=== PATIENT | female | born 1950 | race Caucasian/White ===

== ENCOUNTER 2021-09-14 08:45 | Emergency (ER) | payer MEDICARE ==
[~2021-09-14] VITALS: Ht 160 cm; Wt 80.5 kg
[~2021-09-14 08:45] MED LIST: ACET325T21 PO; ALBU2.5V8 INH; ALPR0.5T6 PO; ATOR20TA58 PO; DEXA6TAB6 PO; GUAI100L12 PO; HYDR-2759 PO; HYDR12.58 PO; IPRA4AER INH; LOSA-73 PO; MELO15TA23 PO; PANT40TA77 PO; PRED-220 PO
--- NOTE | 2021-09-14 08:59 | PHYS DOC ---
Past Medical History Past Medical History: Anxiety, Arthritis, Hypertension, Other Additional Past Medical Histor: BRAIN ANEURYSM Past Surgical History: Appendectomy, Other Additional Past Surgical Histo: brain aneurysm clipping x2, ovarian cyst Smoking Status: Current Every Day Smoker Alcohol Use: Occasionally Drug Use: None General Adult EDM: Chief Complaint: SHORTNESS OF BREATH HPI: HPI: Patient is a 71 year old female who presents with report of dyspnea for the past several days. She also reports cough with clear sputum, which is unchanged from her baseline cough. She denies chest pain. She denies hemoptysis. She denies fevers or chills. She continues to smoke tobacco. She was admitted here in May of this year with Covid pneumonia. She had been fully vaccinated against Covid at that time. She recovered relatively uneventfully thereafter. She reports that her cough and shortness of breath symptoms just began last night. She denies lower extremity pain or swelling. Denies syncope, dizziness, diaphoresis. Denies weight loss. Denies known sick contacts, denies other recent hospitalization, denies travel history. Review of Systems: Review of Systems: Constitutional: Denies fever or chills. [] Eyes: Denies change in visual acuity. [] HENT: Mild nasal congestion. Denies sore throat or voice changes. Respiratory: Dyspnea, wheezing, cough. Denies hemoptysis. Cardiovascular: Denies chest pain or edema. [] GI: Denies abdominal pain, nausea, vomiting : Denies urinary symptoms. Musculoskeletal: Denies back pain or joint pain. [] Integument: Denies rash. [] Neurologic: Denies headache, focal weakness or sensory changes. [] Psychiatric: Denies depression or anxiety. [] Heart Score: C/O Chest Pain: No Risk Factors: Risk Factors: DM, Current or recent (<one month) smoker, HTN, HLP, family history of CAD, obesity. Risk Scores: Score 0 - 3: 2.5% MACE over next 6 weeks - Discharge Home Score 4 - 6: 20.3% MACE over next 6 weeks - Admit for Clinical Observation Score 7 - 10: 72.7% MACE over next 6 weeks - Early Invasive Strategies Allergies: Allergies: Allergies Coded Allergies Type Severity Reaction Last Updated Verified Penicillins Allergy Intermediate 03/30/19 Yes Sulfa (Sulfonamide Antibiotics) Allergy Intermediate 03/30/19 Yes codeine Allergy Intermediate 03/30/19 Yes Physical Exam: PE: Constitutional: Well developed, well nourished, no acute distress, non-toxic appearance. [] HENT: Normocephalic, atraumatic Eyes: Sclera are clear and anecteric Neck: Normal range of motion, no tenderness, supple, no stridor. Trachea is midline. No JVD. Cardiovascular:Heart rate regular rhythm, +2 radial and +2 posterior tibial pulses bilaterally. Lungs & Thorax: Inspiratory and expiratory wheezing bilaterally. Bilateral coarse rhonchi. No stridor. Mild tachypnea. No retractions. Speaks in full and clear sentences. Abdomen: Abdomen is soft, non-distended, non-tender to palpation. Skin: Warm, dry, no erythema, no rash. [] Back: No tenderness, no CVA tenderness. [] Extremities: No tenderness, no cyanosis, no clubbing, ROM intact, no edema. No calf tenderness. Neurologic: Alert and oriented X 3, normal motor function, normal sensory function, no focal deficits noted. [] Psychologic: Affect normal, judgement normal, mood normal. [] EKG: EKG: EKG is interpreted at 0904 Rhythm is sinus Rate is 87 bpm [place] is left marked artifact No STEMI EKG is interpreted at 1013 Rhythm is sinus Rate is 78 bpm [place] is left No STEMI Radiology/Procedures: Radiology/Procedures: IMAGING REPORT Signed PATIENT: MARK OHARA ACCOUNT: [id number] : 1950 LOCATION: ER AGE: 71 SEX: F EXAM STATUS: REG ER ORD. PHYSICIAN: FRED BERMAN DO REASON: cough, dyspnea PROCEDURE: PORTABLE CHEST 1V EXAM: Chest, single view. HISTORY: Cough. Dyspnea. COMPARISON: 06/23/2021 FINDINGS: A frontal view of the chest is obtained. There is stable left parahilar opacity. There is bilateral lower lobe atelectasis or interstitial infiltrate. There is no consolidation, pleural effusion or pneumothorax. The heart is normal in size. There is IMPRESSION: 1. Stable left perihilar opacity. This may be due to consolidated infiltrate or underlying mass. Short-term radiographic or CT follow-up is recommended. 2. Increased bilateral lower lobe atelectasis or interstitial infiltrate. Electronically signed by: Keyanna Prakash MD (09/14/2021 9:43 AM) [id number] DICTATED and SIGNED BY: KEYANNA PRAKASH MD DATE: 09/14/21 [id number] IMAGING REPORT Signed PATIENT: MARK OHARA ACCOUNT: [id number] : 1950 LOCATION: ER AGE: 71 SEX: F EXAM STATUS: REG ER ORD. PHYSICIAN: FRED BERMAN DO REASON: dyspnea, hilar mass PROCEDURE: CT CHEST W/CONTRAST EXAM: Chest CT with intravenous contrast. HISTORY: Dyspnea. Hilar mass. TECHNIQUE: Computed tomographic images of the chest were obtained following the administration of intravenous contrast. Multiplanar reformatting was performed. *One or more of the following individualized dose reduction techniques were utilized for this examination: 1. Automated exposure control. 2. Adjustment of the mA and/or kV according to patient size. 3. Use of iterative reconstruction technique. COMPARISON: None. FINDINGS: The heart is normal in size. There is trace pericardial fluid. The aorta is normal in caliber. There is a bovine aortic arch branching pattern, a normal variant. There is aortic and aortic branch vessel atherosclerosis. There are enlarged mediastinal and hilar lymph nodes. For reference purposes, there is a 1.7 cm aortopulmonary window lymph node. There is a 1.3 cm right paratracheal lymph node. There is a 3.8 cm mass or masslike consolidation with surrounding groundglass opacity and bandlike extension to the overlying pleural within the anterior medial left upper lobe. There is no pneumothorax or pleural effusion. There is a tiny hiatal hernia. There is hepatic steatosis. There is mild left renal caliectasis. There are degenerative changes throughout the spine. There is no acute or suspicious osseous lesion. There is a moderate chronic L2 compression fracture with large superior endplate Schmorl's node. IMPRESSION: 1. 3.8 cm mass or masslike consolidation with surrounding groundglass opacity and atelectatic extension to the overlying pleura within the anterior left upper lobe. The CT appearance and persistence of this finding compared to radiographs dated 06/20/2021 favors pulmonary neoplasm rather than an infectious etiology. PET/CT may be useful for further characterization. 2. Enlarged mediastinal and hilar lymph nodes, the most conspicuous of which is an aortopulmonary window lymph node measuring 1.7 cm. This may be reactive or metastatic. Electronically signed by: Keyanna Prakash MD (09/14/2021 12:04 PM) [id number] DICTATED and SIGNED BY: KEYANNA PRAKASH MD DATE: 09/14/21 [id number] Course & Med Decision Making: Course & Med Decision Making Pertinent Labs and Imaging studies reviewed. (See chart for details) I have discussed the findings, differential diagnosis and plan of care with the patient. She is given IV Solu-Medrol as well as a DuoNeb treatment. She reports feeling much better. Wheezing is improved. No evidence of hypoxia or respiratory distress. I did explain the findings of mass on CT, concerning for possible malignancy. I was able to speak with Dr. Solis, he reports that he will see her in the office tomorrow, she should show up at 9:45 in the morning. I gave him her information, he will report this to his office staff. I discussed strict return precautions. There is no current indication for admission to the hospital based on her current clinical presentation. She verbalizes understanding of instructions provided, she will go see pulmonary services tomorrow. She is given outpatient resources to establish a primary care physician as well. [place] Disclaimer: [place] Disclaimer: This electronic medical record was generated, in whole or in part, using a voice recognition dictation system. Departure Departure Impression: Primary Impression: Dyspnea Qualified Codes: R06.00 - Dyspnea, unspecified Additional Impressions: COPD (chronic obstructive pulmonary disease) Qualified Codes: J44.9 - Chronic obstructive pulmonary disease, unspecified Pulmonary mass Hilar adenopathy Condition: STABLE Referrals: UNKNOWN PCP NAME (PCP) JUAREZ SOLIS MD Patient Instructions: Chronic Obstructive Pulmonary Disease, Lung Cancer Additional Instructions: Use your prescribed medications as directed. Return to the ER for chest pain, coughing up blood, temperature of 100.4 or higher, vomiting, dehydration, weakness or any other concerns. Please go to Dr. Solis's office at 9:45 in the morning to be seen to further evaluate your lung mass. He will also be able to help follow you for your COPD. Scripts Prednisone (PREDNISONE) 50 Mg Tablet 1 TAB PO DAILY for 4 Days, #4 TAB Prov: FRED BERMAN DO 09/14/21 FRED BERMAN DO Sep 14, 2021 08:59
[2021-09-14] MEDS ORDERED: methylPREDNISolone SOD SUCC PF 125 MG/2 ML VIAL. IV ONE (09:30)
[2021-09-14] MEDS ORDERED: IPRATRPIUM/ALBUTEROL 0.5/2.5MG 3 ML NEBU. NEB ONE (09:30)
[2021-09-14 09:32] LABS: BASO % 1 % (0-3); EOS % 0 % (0-3); HEMATOCRIT 40.9 % (36.0-47.0); HEMOGLOBIN 13.8 g/dL (12.0-15.5); LYMPH # 1.4 x10^3/uL (1.0-4.8); LYMPH % 22 % (24-48); MEAN CORPUSCULAR HEMOGLOBIN 32 pg (25-35); MEAN CORPUSCULAR HGB CONC 34 g/dL (31-37); MEAN CORPUSCULAR VOLUME 94 fL (79-100); MONO # 0.7 x10^3/uL (0.0-1.1); MONO % 11 % (0-9); NEUT # 4.2 x10^3/uL (1.8-7.7); NEUT % 67 % (31-73); PLATELET COUNT 218 x10^3/uL (140-400); RED BLOOD COUNT 4.34 x10^6/uL (3.50-5.40); RED CELL DISTRIBUTION WIDTH 13.8 % (11.5-14.5); WHITE BLOOD COUNT 6.3 x10^3/uL (4.0-11.0)
--- NOTE | 2021-09-14 09:45 | RAD ---
EXAM: Chest, single view. HISTORY: Cough. Dyspnea. COMPARISON: 06/23/2021 FINDINGS: A frontal view of the chest is obtained. There is stable left parahilar opacity. There is b ilateral lower lobe atelectasis or interstitial infiltrate. There is no consolidation, pleural effusi on or pneumothorax. The heart is normal in size. There is IMPRESSION: 1. Stable left perihilar opacity. This may be due to consolidated infiltrate or underlying mass. Shor t-term radiographic or CT follow-up is recommended. 2. Increased bilateral lower lobe atelectasis or interstitial infiltrate. Electronically signed by: Keyanna Goldberg MD (09/14/2021 9:43 AM) [id number]
[2021-09-14 09:48] LABS: CALCIUM 9.4 mg/dL (8.5-10.1); CREATININE 0.5 mg/dL (0.6-1.0); GFR 121.3; POTASSIUM 3.8 mmol/L (3.5-5.1)
[2021-09-14 09:54] LABS: ALBUMIN 3.8 g/dL (3.4-5.0); ALBUMIN/GLOBULIN RATIO 0.9 (1.0-1.7); TOTAL BILIRUBIN 0.3 mg/dL (0.2-1.0); TOTAL PROTEIN 7.9 g/dL (6.4-8.2)
--- NOTE | 2021-09-14 10:19 | EKG ---
[facility] [address] [place] [address] Test Date: 2021-09-14 Test Time: 10:11:50 Pat Name: MARK OHARA Department: Room: Gender: F Manager Cath Lab: : 1950 Requested By: FRED BERMNA Order Number: [id number] Reading MD: Measurements Intervals [place] Rate: 78 P: 47 ME: 170 QRS: -10 QRSD: 72 T: 34 QT: 384 QTc: 441 Interpretive Statements SINUS RHYTHM LEFTWARD AXIS QRS(T) CONTOUR ABNORMALITY CONSISTENT WITH INFERIOR INFARCT PROBABLY OLD ABNORMAL ECG RI6.01 Compared to ECG 09/14/2021 10:10:37 Atrial flutter no longer present Myocardial infarct finding still present
[2021-09-14] MEDS ORDERED: CONTRAST GIVEN. MC PRN (11:15)
[2021-09-14] MEDS ORDERED: IOHEXOL 300 MG/ML 100ML VIAL. IV ONE (11:15)
--- NOTE | 2021-09-14 12:07 | RAD ---
EXAM: Chest CT with intravenous contrast. HISTORY: Dyspnea. Hilar mass. TECHNIQUE: Computed tomographic images of the chest were obtained following the administration of int ravenous contrast. Multiplanar reformatting was performed. *One or more of the following individualized dose reduction techniques were utilized for this examina tion: 1. Automated exposure control. 2. Adjustment of the mA and/or kV according to patient size. 3. Use of iterative reconstruction technique. COMPARISON: None. FINDINGS: The heart is normal in size. There is trace pericardial fluid. The aorta is normal in calib er. There is a bovine aortic arch branching pattern, a normal variant. There is aortic and aortic bra nch vessel atherosclerosis. There are enlarged mediastinal and hilar lymph nodes. For reference purpo ses, there is a 1.7 cm aortopulmonary window lymph node. There is a 1.3 cm right paratracheal lymph n ode. There is a 3.8 cm mass or masslike consolidation with surrounding groundglass opacity and bandli ke extension to the overlying pleural within the anterior medial left upper lobe. There is no pneumot horax or pleural effusion. There is a tiny hiatal hernia. There is hepatic steatosis. There is mild l eft renal caliectasis. There are degenerative changes throughout the spine. There is no acute or susp icious osseous lesion. There is a moderate chronic L2 compression fracture with large superior endpla te Schmorl's node. IMPRESSION: 1. 3.8 cm mass or masslike consolidation with surrounding groundglass opacity and atelectatic extensi on to the overlying pleura within the anterior left upper lobe. The CT appearance and persistence of this finding compared to radiographs dated 06/20/2021 favors pulmonary neoplasm rather than an infecti ous etiology. PET/CT may be useful for further characterization. 2. Enlarged mediastinal and hilar lymph nodes, the most conspicuous of which is an aortopulmonary [place] lymph node measuring 1.7 cm. This may be reactive or metastatic. Electronically signed by: Keyanna Goldberg MD (09/14/2021 12:04 PM) [id number]
[2021-09-14] MEDS ORDERED: PRED50TA PO (13:24)
[2021-09-14 13:28] VITALS: BP 167/78
== END 2021-09-14 13:36 | disposition home or self-care (01) ==
LOC: ER 08:45
DX: J44.9 Chronic obstructive pulmonary disease, unspecified (principal); R59.0 Localized enlarged lymph nodes; R91.8 Other nonspecific abnormal finding of lung field; K44.9 Diaphragmatic hernia without obstruction or gangrene; I10 Essential (primary) hypertension; F17.200 Nicotine dependence, unspecified, uncomplicated; Z88.0 Allergy status to penicillin; Z88.2 Allergy status to sulfonamides; Z88.5 Allergy status to narcotic agent
CPT/HCPCS: 36415; 71045; 71260; 80053; 83605; 83880; 84484; 85025; 87040; 93005; 94640; 96374; 99285; J2930; Q9967

== ENCOUNTER 2021-09-29 08:43 | Observation (INO) | payer MEDICARE ==
[2021-09-29] VITALS (21 sets, daily range): BP systolic 88–134; BP diastolic 39–84
[~2021-09-29] VITALS: Ht 160 cm; Wt 80.9 kg
[~2021-09-29 08:43] MED LIST changes: +PRED50TA PO
[2021-09-29] MEDS ORDERED: MULT-245 PO (09:09)
[2021-09-29] MEDS ORDERED: CHOL10004 PO (09:11)
[2021-09-29] MEDS ORDERED: MELO15TA23 PO (09:11)
[2021-09-29 09:29] LABS: BASO % 0 % (0-3); EOS % 0 % (0-3); HEMATOCRIT 41.4 % (36.0-47.0); HEMOGLOBIN 13.6 g/dL (12.0-15.5); LYMPH # 2.1 x10^3/uL (1.0-4.8); LYMPH % 19 % (24-48); MEAN CORPUSCULAR HEMOGLOBIN 31 pg (25-35); MEAN CORPUSCULAR HGB CONC 33 g/dL (31-37); MEAN CORPUSCULAR VOLUME 94 fL (79-100); MONO # 0.7 x10^3/uL (0.0-1.1); MONO % 6 % (0-9); NEUT # 8.2 x10^3/uL (1.8-7.7); NEUT % 74 % (31-73); PLATELET COUNT 241 x10^3/uL (140-400); RED CELL DISTRIBUTION WIDTH 14.1 % (11.5-14.5); WHITE BLOOD COUNT 11.1 x10^3/uL (4.0-11.0)
[2021-09-29 09:50] LABS: PROTHROMBIN TIME PATIENT 11.9 SEC (11.7-14.0)
[2021-09-29] MEDS ORDERED: LIDOCAINE WITH 8.4% SOD BICARB 3 ML DISP.SYRIN. ONE (10:26)
[2021-09-29] MEDS ORDERED: MIDAZOLAM HCL/PF 2 MG/2 ML VIAL. ONE (10:48)
[2021-09-29] MEDS ORDERED: fentaNYL PF VIAL 100 MCG/2 ML VIAL ONE (10:49)
[2021-09-29] MEDS ORDERED: LIDOCAINE WITH 8.4% SOD BICARB 3 ML DISP.SYRIN. IJ ONE (11:15)
[2021-09-29] MEDS ORDERED: fentaNYL PF VIAL 100 MCG/2 ML VIAL IV ONE (11:15)
[2021-09-29] MEDS ORDERED: MIDAZOLAM HCL/PF 2 MG/2 ML VIAL. IV ONE (11:15)
--- NOTE | 2021-09-29 13:30 | NUR ---
Patient began to complain of pain at insertion site. Sub Q air felt by RN. Notified Dr. Mabry. STAT CXR completed-- MD noted pneumothorax. Patient to be admitted for observation. Second CXR will be done in 1 hour. Patient stable. No SOA, VS WNL. On 2L NC. RN notified Dr. Garduno, who will be admitting patient.
--- NOTE | 2021-09-29 13:38 | RAD ---
EXAMINATION: Chest radiograph. VIEWS: Single AP view of the chest COMPARISON: CT from earlier same day INDICATION:71 years, Female, post lung biopsy. FINDINGS: Stable cardiomediastinal silhouette. There is a small left apical pneumothorax measuring 1.4 cm to th e pleural edge. Stable appearance of known left perihilar mass. No pleural effusion. No acute osseous process. IMPRESSION: Small post procedural left pneumothorax. These findings were discussed with IR tech/nurse at 09/29/2021 1:[address] Pang. Electronically signed by: Abiel Pang DO (09/29/2021 1:35 PM) [id number]
[2021-09-29] MEDS ORDERED: HYDROcodone/APAP 5/325MG 1 TAB TABLET PO PRN (14:00)
--- NOTE | 2021-09-29 15:42 | RAD ---
XR CHEST 1V History: Reason: pneumothorax-- repeat at 15:10 / Spl. Instructions: / History: Comparison: September 29, 2021 Findings: Small left apical pneumothorax measuring 2.1 cm from the pleural surface compared to 1.3 cm previousl y. Increased patchy bibasilar opacities. Unchanged left midlung mass. No pleural effusion. Normal hea rt size. Posttraumatic deformity of the right proximal humerus. Bilateral glenohumeral DJD. Impression: 1. Increased small left apical pneumothorax. 2. Mild bibasilar linear atelectasis. Electronically signed by: Josef Cummings DO (09/29/2021 3:39 PM) [facility]
--- NOTE | 2021-09-29 15:58 | NUR ---
Patient taken by wheelchair to room 430. Bedside report given to Carin RN. 1510 chest x-ray showed no changes (per Dr. Mabry), patient to be observed overnight. Patient wearing 2L of oxygen for her comfort and has asked about arthritis pain meds. Carin explained to patient that she will call Dr. Garduno to resume her home medications.
--- NOTE | 2021-09-29 16:18 | RAD ---
CT-guided biopsy, left upper lobe pulmonary mass 09/29/2021 INDICATION: Left upper lobe pulmonary mass suspicious for lung cancer Consent: The procedure was explained in its entirety to the patient or the patients designated repres entative by a member of the treatment team, including a discussion of the risks, benefits and commonl y accepted alternatives to the procedure, as well as the expected consequences of no therapy whatsoev er. Discussion of the risks included, but was not limited to, those that are most frequent and thos e that are rare but possibly severe or life-threatening, as well as the possibility of unforeseen com plications. The anterior chest was prepped and draped using maximum sterile barrier technique. 1% lidocaine was a dministered for local anesthesia. CT imaging redemonstrates a spiculated mass in the left upper lung suspicious for primary lung cancer. Under intermittent CT guidance a 17-gauge needle was advanced to the periphery of the mass. Core biopsy samples were obtained. The guiding needle was removed. No sign ificant pneumothorax or hemorrhage is identified. Sterile dressings were applied. No immediate compli cations were identified. Sedation: The procedure was performed under conscious sedation including continuous cardiopulmonary m onitoring via a dedicated sedation nurse. Ecvy-hv-tufg sedation time: 20 minutes Impression: CT-guided biopsy, left upper lobe lung mass CT DOSING PQRS STATEMENT: One or more of the following individualized dose reduction techniques were utilized for this examinat ion: 1. Automated exposure control 2. Adjustment of the mA and/or kV according to patient size 3. Use of iterative reconstruction technique Electronically signed by: Anand Mabry MD (09/29/2021 4:15 PM) [id number]
[2021-09-29] MEDS ORDERED: ALPRAZolam 0.5 MG TABLET PO PRN (16:30)
[2021-09-29] MEDS ORDERED: ACETAMINOPHEN 325 MG TABLET. PO PRN (16:30)
[2021-09-29] MEDS: HYDROcodone/APAP 5/325MG 1 TAB TABLET PO PRN (16:54)
--- NOTE | 2021-09-29 18:17 | SSS ---
DATE OF SERVICE: 09/29/2021 ADMIT DATE: 09/29/2021 CHIEF COMPLAINT: Pneumothorax. HISTORY OF PRESENT ILLNESS: The patient is a pleasant elderly female who used to smoke. She also had COVID-19 in May. Apparently in May, they did not notice that she had any pulmonary mass, but now some imaging is showing a possible pulmonary mass. She went for a biopsy today in Interventional Radiology with Dr. Mabry. Dr. Mabry was concerned that she was having some chest discomfort afterwards, so he got some imaging. She had some subcutaneous air and a possible small pneumothorax. He called me. I have accepted the patient as a direct admit from the Interventional Radiology lab. We planned to just observe her overnight and probably let her go tomorrow if she is doing well. PAST MEDICAL HISTORY: Tobacco abuse, hypertension, chronic pain, probable narcotic dependence, polypharmacy, asthma, muscle spasms, anxiety. ALLERGIES: PENICILLIN, SULFA, AND CODEINE. FAMILY HISTORY: Diabetes. SOCIAL HISTORY: She quit smoking. No drink or drugs. She has a boyfriend named Flip, who is here with her. MEDICATIONS: Reviewed, please refer to the MRAD, she is on 9. REVIEW OF SYSTEMS: GENERAL: No history of weight change, weakness or fevers. SKIN: No bruising, hair changes or rashes. EYES: No blurred, double or loss of vision. NOSE AND THROAT: No history of nosebleeds, hoarseness or sore throat. HEART: No history of palpitations, chest pain or shortness of breath on exertion. LUNGS: Denies cough, hemoptysis, wheezing or shortness of breath. GASTROINTESTINAL: Denies changes in appetite, nausea, vomiting, diarrhea or constipation. GENITOURINARY: No history of frequency, urgency, hesitancy or nocturia. NEUROLOGIC: Denies history of numbness, tingling, tremor or weakness. PSYCHIATRIC: No history of panic, anxiety or depression. ENDOCRINE: No history of heat or cold intolerance, polyuria or polydipsia. EXTREMITIES: Denies muscle weakness, joint pain, pain on walking or stiffness. PHYSICAL EXAMINATION: VITALS: Within normal limits and are stable. GENERAL: No apparent distress. Alert and oriented. HEENT: Normal cephalic atraumatic, external auditory canals are patent. EYES: Extraocular muscles are intact, pupils are equally round and reactive to light and accommodation. MUSCULOSKELETAL: Well developed, well nourished, good range of motion. ENDOCRINE: No thyromegaly was palpated, LYMPHATICS: No cervical chain or axillary nodes were noted. HEMATOPOIETIC: No bruising. NECK: Supple, no JVD, no thyromegaly was noted. LUNGS: Clear to auscultation in all lung anderson without rhonchi or wheezing. HEART: RRR, S1, S2 present. Peripheral pulses intact, no obvious murmurs were noted. ABDOMEN: Soft, nontender. Positive bowel sounds no organomegaly, normal bowel sounds. EXTREMITIES: Without any cyanosis, clubbing, or edema. Pedal pulses intact, Homans sign is negative. NEUROLOGIC: Normal speech, normal tone. A and O x 3, moves all extremities, no obvious focal deficits. PSYCHIATRIC: Normal affect, normal mood. Stable. SKIN: No ulcerations or rashes, good skin turgor, no jaundice. VASCULAR: Good capillary refill, neurovascular bundle appears to be intact. ASSESSMENT AND PLAN: Post-procedure pneumothorax. The patient has been admitted overnight for observation tomorrow. If she is doing well, we will plan to discharge, if okay with Dr. Mabry, I suspect he may want to get another chest x-ray in the morning. For now, we resumed her home meds. DVT prophylaxis. Full code. Breathing treatments. Encourage p.o. intake. ANNAMARIA/NURIA DR: ANNAMARIA/kaley TID: [id number]
[2021-09-29] MEDS: IPRATRPIUM/ALBUTEROL 0.5/2.5MG 3 ML NEBU. NEB SCH (18:52)
[2021-09-29] MEDS ORDERED: NON FORMULARY ITEM (Ipratropium/Albuterol Sulfate (Combivent Respimat Inhal) 1 PUFF) INH SCH (20:00)
[2021-09-30 03:49] VITALS: BP 125/61
[2021-09-30] MEDS: IPRATRPIUM/ALBUTEROL 0.5/2.5MG 3 ML NEBU. NEB SCH ×2 (06:00→11:28)
[2021-09-30 07:00] VITALS: BP 122/75
[2021-09-30 08:32] VITALS: BP 122/75
[2021-09-30] MEDS: HYDROcodone/APAP 5/325MG 1 TAB TABLET PO PRN (08:32)
[2021-09-30] MEDS ORDERED: CHOLECALCIFEROL (VITAMIN D3) 1,000 UNIT TABLET PO SCH (09:00)
[2021-09-30] MEDS ORDERED: hydroCHLOROthiazide 12.5 MG CAPSULE PO SCH (09:00)
[2021-09-30] MEDS ORDERED: LOSARTAN POTASSIUM 50 MG TABLET. PO SCH (09:00)
[2021-09-30] MEDS ORDERED: MULTIVITAMIN with MINERAL TABLET. PO SCH (09:00)
[2021-09-30] MEDS ORDERED: NON FORMULARY ITEM (Meloxicam 1 TAB) PO SCH (09:00)
[2021-09-30] MEDS ORDERED: MELOXICAM 7.5 MG TABLET PO SCH (09:00)
--- NOTE | 2021-09-30 09:03 | RAD ---
EXAMINATION: Chest radiograph. VIEWS: Single AP view of the chest COMPARISON: Prior day INDICATION:71 years, Female, follow-up left pneumothorax. FINDINGS: Stable cardiomediastinal silhouette. Stable appearance of known left perihilar mass with associated p ostbiopsy changes. No significant interval change of small left apical pneumothorax. Bibasilar opacit ies favoring subsegmental atelectasis. No pleural effusion or pneumothorax. No acute osseous process. IMPRESSION: No significant change of small left apical pneumothorax. Other pulmonary findings appear essentially unchanged. Electronically signed by: Abiel Pang DO (09/30/2021 9:01 AM) [id number]
--- NOTE | 2021-09-30 09:40 | PDOC ---
[employer] PROGRESS NOTE Date of Service DOS: DATE: 09/30/21 TIME: 09:37 Chief Complaint Chief Complaint A/P: Left pneumothorax - stable, resolving. Will discharge home, no O2 requirements HTN, chronic pain due to osteoarthritis, COPD with asthma, anxiety History of Present Illness History of Present Illness Ms Augustine is a femal with PMHx HTN, chronic pain due to osteoarthritis, COPD with asthma, anxiety who was admitted after left lung biopsy with small residual pneumothorax. 09/30: No overnight events. No left-sided chest pain. No cough shortness of breath stable at baseline. Discussed with pulmonology minimal residual pneumothorax not worsened. She was very close and lives with her sister and will have outpatient follow-up within the week. Vitals/I&O Vitals/I&O: Vital Signs Date Time Temp Pulse Resp B/P (MAP) Pulse Ox O2 Delivery O2 Flow Rate FiO2 09/30/21 09:11 Room Air 09/30/21 08:32 72 122/75 09/30/21 08:04 2.0 09/30/21 07:00 98.4 20 92 98.4 I & O 09/29/21 09/29/21 09/30/21 15:00 23:00 07:00 Intake Total 600 ml Balance 600 ml Physical Exam Lungs: Wheezing Comment Review of Relevant I have reviewed the following items gale (where applicable) has been applied. Medications: Current Medications Medications (Trade) Dose Ordered Sig/Dylan Route PRN Reason Start Time Stop Time Status Last Admin Dose Admin Lidocaine HCl (Buffered Lidocaine 1%) 3 ml 1X ONCE IJ 09/29/21 11:15 09/29/21 11:16 DC 09/29/21 11:19 Midazolam HCl (Versed) 2 mg 1X ONCE IV 09/29/21 11:15 09/29/21 11:16 DC 09/29/21 11:21 Fentanyl Citrate (Fentanyl 2ml Vial) 100 mcg 1X ONCE IV 09/29/21 11:15 09/29/21 11:16 DC 09/29/21 11:20 Meloxicam (Mobic) 7.5 mg DAILY PO 09/30/21 09:00 09/30/21 08:32 Vitamin D (Vitamin D3) 1,000 unit DAILY PO 09/30/21 09:00 09/30/21 08:32 Acetaminophen/ Hydrocodone Bitart (Lortab 5/325) 1 tab PRN Q8HRS PRN PO PAIN 09/29/21 16:30 09/30/21 08:32 Losartan Potassium (Cozaar) 50 mg DAILY PO 09/30/21 09:00 09/30/21 08:32 Hydrochlorothiazide (Microzide) 12.5 mg DAILY PO 09/30/21 09:00 09/30/21 08:31 Multivitamins (Thera M Plus) 1 tab DAILY PO 09/30/21 09:00 09/30/21 08:32 Albuterol/ Ipratropium (Duoneb) 3 ml RTQID NEB 09/29/21 20:00 09/30/21 06:00 Justifications for Admission Other Justification FELICITAS WALKER MD Sep 30, 2021 09:40
--- NOTE | 2021-09-30 09:40 | CONS ---
DATE OF CONSULTATION: 09/30/2021 PULMONARY CONSULTATION ATTENDING PHYSICIAN: Cherrie Garduno DO REASON FOR CONSULTATION: Lung mass, possible pneumothorax post-biopsy. HISTORY OF PRESENT ILLNESS: The patient is a 71-year-old female who was seen by my partner, Dr. Solis recently. She was found to have a mass 3.8 cm in size in the left upper lobe with surrounding ground glass opacity. She also had mediastinal or hilar adenopathy. She smoked for about 40 years. The patient has history of COVID-19 infection in May of last year. The patient had an outpatient CT-guided biopsy. There was a concern for a possible small pneumothorax and subcutaneous air. As a result, she was kept under observation overnight. She feels much better. She has no chest pain. Denies any shortness of breath. There was a small apical pneumothorax seen on the initial chest x-ray post-biopsy. The pneumothorax increased slightly. As a result, the patient was kept in the hospital. She denies any chest pain. Denies any shortness of breath. No nausea, vomiting. No headaches, no dysuria. PAST MEDICAL HISTORY: Significant for COPD, likely severe. History of COVID infection in 05/2020. Hypertension, chronic pain, history of muscle spasm, anxiety and narcotic dependency. PAST SURGICAL HISTORY: No recent surgeries except for CT-guided biopsy. ALLERGIES: PENICILLIN, SULFA, AND CODEINE. FAMILY HISTORY: Diabetes. SOCIAL HISTORY: Smoked for 40 years. She has not quit cigarettes. MEDICATIONS: Reviewed as listed in the [facility]. REVIEW OF SYSTEMS: Twelve-point review of system obtained. Pertinent positives discussed in my present illness, otherwise noncontributory. All systems that were negative were reviewed as well. PHYSICAL EXAMINATION: VITAL SIGNS: Reviewed. Afebrile. Pulse oximetry 98% on room air. NECK: Supple. LUNGS: Clear. No wheezing. CARDIOVASCULAR: With a regular rate. ABDOMEN: Soft, nontender. EXTREMITIES: With no pitting edema. LABORATORY DATA: Shows a white cell count 11.1, hemoglobin 13.6 and platelets are 241. IMPRESSION: 1. The patient with abnormal CT chest recently with a 3.8 cm mass in the left upper lobe along with mediastinal or hilar adenopathy. This was concerning for malignancy. She smoked for 40 years. She is now status post biopsy. 2. Status post biopsy with a small left apical pneumothorax. The patient's pneumothorax appears to have resolved based on today's chest x-ray. Probably less then 5% on todays cxr. RECOMMENDATIONS: 1. From a pulmonary standpoint, she is stable to be discharged. 2. Resume home bronchodilators. 3. Follow up with Dr. Solis to discuss the results of the biopsy. 4. The patient to have PET scan as well as a pulmonary function test prior to the visit. GAYLE DR: Marie TID: [id number] MTDD
--- NOTE | 2021-09-30 09:43 | PDOC3 ---
Discharge Summary Visit Information Date of Admission: Sep 29, 2021 Date of Discharge: Sep 30, 2021 Admitting Diagnosis: Left pneumothorax Final Diagnosis Left pneumothorax Brief Hospital Course Allergies Allergies Coded Allergies Type Severity Reaction Last Updated Verified Penicillins Allergy Intermediate 09/14/21 Yes Sulfa (Sulfonamide Antibiotics) Allergy Intermediate 09/14/21 Yes codeine Allergy Intermediate 09/14/21 Yes Vital Signs Vital Signs Date Time Temp Pulse Resp B/P (MAP) Pulse Ox O2 Delivery O2 Flow Rate FiO2 09/30/21 09:11 Room Air 09/30/21 08:32 72 122/75 09/30/21 08:04 2.0 09/30/21 07:00 98.4 20 92 98.4 Lab Results Laboratory Tests Test 09/29/21 09:14 White Blood Count 11.1 x10^3/uL (4.0-11.0) Red Blood Count 4.40 x10^6/uL (3.50-5.40) Hemoglobin 13.6 g/dL (12.0-15.5) Hematocrit 41.4 % (36.0-47.0) Mean Corpuscular Volume 94 fL (79-100) Mean Corpuscular Hemoglobin 31 pg (25-35) Mean Corpuscular Hemoglobin Concent 33 g/dL (31-37) Red Cell Distribution Width 14.1 % (11.5-14.5) Platelet Count 241 x10^3/uL (140-400) Neutrophils (%) (Auto) 74 % (31-73) Lymphocytes (%) (Auto) 19 % (24-48) Monocytes (%) (Auto) 6 % (0-9) Eosinophils (%) (Auto) 0 % (0-3) Basophils (%) (Auto) 0 % (0-3) Neutrophils # (Auto) 8.2 x10^3/uL (1.8-7.7) Lymphocytes # (Auto) 2.1 x10^3/uL (1.0-4.8) Monocytes # (Auto) 0.7 x10^3/uL (0.0-1.1) Eosinophils # (Auto) 0.0 x10^3/uL (0.0-0.7) Basophils # (Auto) 0.0 x10^3/uL (0.0-0.2) Prothrombin Time 11.9 SEC (11.7-14.0) Prothromb Time International Ratio 0.9 (0.8-1.1) Brief Hospital Course Ms Augustine is a femal with PMHx HTN, chronic pain due to osteoarthritis, COPD with asthma, anxiety who was admitted after left lung biopsy with small residual pneumothorax. 09/30: No overnight events. No left-sided chest pain. No cough shortness of breath stable at baseline. Discussed with pulmonology minimal residual pneumothorax not worsened. She was very close and lives with her sister and will have outpatient follow-up within the week. Consults: Pulmonology Problem list: Left pneumothorax - stable, resolving. Will discharge home, no O2 requirements HTN, chronic pain due to osteoarthritis, COPD with asthma, anxiety H/o COVID-19 pneumonia History of a brain aneurysm status post clips Greater than 30 minutes spent on d/c home will have outpatient pulmonology foll ow-up Discharge Information Condition at Discharge: Improved Follow Up: Weeks (1) Disposition/Orders: D/C to Home Scheduled Cholecalciferol (Vitamin D3) (Vitamin D3 ) 25 Mcg Tablet, 50 MCG PO DAILY for SUPPLEMENT, (Reported) 1,000 UNITS = 25 MCG Entered as Reported by: ALL ALLAN on 09/29/21 0911 Last Taken: Unknown Dose on 09/28/21 Last Action: Continued on 09/29/211623 by TIFFANIE RIBERA Hydrochlorothiazide (Hydrochlorothiazide Tablet) 12.5 Mg Tablet, 12.5 MG PO DAILY for DIURETIC, Ref 0 (Reported) Entered as Reported by: GAYLA AC RN on 03/29/191623 Last Taken: Unknown Dose on 09/28/21 Last Action: Converted on 09/29/211623 by TIFFANIE RIBERA Ipratropium/Albuterol Sulfate (Combivent Respimat Inhal) 4 Gm Aer.w.adap, 1 PUFF INH RTQID for breathing for 30 Days, #1 Prescribed by: DIONY GONZALEZ MD on 06/23/21 162 Last Taken: Unknown Dose on 09/28/21 Last Action: Converted on 09/29/211623 by TIFFANIE RIBERA Losartan Potassium (Losartan Potassium) 50 Mg Tablet, 50 MG PO DAILY for htn, (Reported) Entered as Reported by: GAYLA AC RN on 03/29/191623 Last Taken: Unknown Dose on 09/29/21 Last Action: Continued on 09/29/211623 by TIFFANIE RIBERA Meloxicam (Meloxicam) 15 Mg Tablet, 1 TAB PO DAILY for rx for 30 Days, #30 Ref 0 (Reported) Entered as Reported by: ALL ALLAN on 09/29/21 0911 Last Taken: Unknown Dose on 09/28/21 Last Action: Converted on 09/29/211623 by TIFFANIE RIBERA Multivitamin (Multi Vitamin Daily) 1 Each Tablet, 1 TAB PO DAILY for rx for 30 Days, #30 Ref 0 (Reported) Entered as Reported by: ALL ALLAN on 09/29/21 0909 Last Taken: Unknown Dose on 09/28/21 Last Action: Converted on 09/29/211623 by TIFFANIE RIBERA Scheduled PRN Acetaminophen (Acetaminophen) 325 Mg Tablet, 650 MG PO PRN Q6HRS PRN for Headaches, Temp > 101.5F for 30 Days, #60 Prescribed by: DIONY GONZALEZ MD on 06/23/211625 Last Taken: Unknown Dose on Unknown Date & Time Last Action: Continued on 09/29/211623 by TIFFANIE RIBERA Alprazolam (Alprazolam) 0.5 Mg Tablet, 0.5 MG PO PRN BID PRN for ANXIETY, (Reported) Entered as Reported by: PALLAVI CRAWFORD on 06/20/212348 Last Taken: Unknown Dose on 09/28/21 Last Action: Continued on 09/29/211623 by TIFFANIE RIBERA Hydrocodone/Acetaminophen (Hydrocodone-Acetamin 5-325 mg) 1 Each Tablet, 1 TAB PO PRN Q8HRS PRN for PAIN, (Reported) Entered as Reported by: PALLAVI CRAWFORD on 06/20/212348 Last Taken: Unknown Dose on 09/28/21 Last Action: Continued on 09/29/211623 by TIFFANIE RIBERA Justicifation of Admission Dx: Justifications for Admission: Justification of Admission Dx: Yes Sepsis: Hypoxemia FELICITAS WALKER MD Sep 30, 2021 09:43
--- NOTE | 2021-09-30 10:22 | NUR ---
SW following. Discussed with RN, pt from home, room air, regular diet. Discharge order for home with self care. RN advised no SW needs.
--- NOTE | 2021-09-30 11:30 | NUR ---
Pt discharged home with self care. Discharge instructions discussed. Pt verbalized understanding. IV removed. Pt assisted to wheelchair and was secured in car with friend.
--- NOTE | 2021-10-01 16:06 | PATHOLOGY ---
[facility] Accession Number: [id number] . 01 Material submitted: . lung - LEFT LUNG MASS. Modifiers: left . 02 Diagnosis: Lung tissue, left lung mass CT-guided needle biopsy: - ADENOCARCINOMA, LEPIDIC PREDOMINANT. SEE COMMENT. (JPM:beau/tegan; 09/30/2021) R 10/01/2021 1531 Local . 02 Comment: Sections of the left lung mass CT-guided needle biopsy reveal lung tissue. There is focal replacement of lung parenchyma by an epithelial neoplasm which primarily shows a lepidic pattern of growth along the pre-existent alveolar architecture. These air spaces are lined by atypical cells having moderate amounts of eosinophilic non-mucinous cytoplasm, and possessing enlarged, rounded to ovoid nuclei containing distinct nucleoli. Some of these air spaces contain pigmented pulmonary macrophages. There is a small area in one of the biopsies containing small crowded acinar structures suspicious for possible invasion. The largest area of tumor measures 4-5 mm in greatest dimension on the glass slide. 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 The case is also examined by Dr. Bautista, who concurs with the diagnosis. The results are reported to Dr. Bautista on 10/01/2021 at 1:30 PM. . (JPM:beau/tegan; 09/30/2021) . 02 Electronically signed: . Pedro García MD, Pathologist NPI- [id number] . 01 Gross description: . The specimen is received in formalin, labeled "Will, Danica, left lung BX" and consists of 2 green-gonzalez cylindrical needle core biopsies ranging in length from 0.9 cm to 1.1 cm and each averaging 0.1 cm in diameter. The specimen is submitted in toto in A1-A2.(COMANCHE; 09/29/2021) DKA/DKA 09/29/2021 1734 Local . 02 Pathologist provided ICD-10: C34.12 . 02 CPT . 526830 Specimen Comment: A courtesy copy of this report has been sent to [phone], [phone] Specimen Comment: [id number], Specimen Comment: Report sent to , DR LEMUS / DR HUMPHRIES Specimen Comment: A duplicate report has been generated due to demographic updates. Performed at: 01 [facility] [address] [facility] [address], [place] [id number] MD Dick Packer MD Phone: [phone] Performed at: 02 [facility] [address] [place], [place] [id number] MD Pedro García MD Phone: [phone]
== END 2021-09-30 11:32 | disposition home or self-care (01) ==
LOC: INTRAD 08:43 → 4 NORTH 13:19
PROVIDERS: ADMIT Internal Medicine; ATTEND Internal Medicine Pulmonary Disease
DX: J95.811 Postprocedural pneumothorax (principal); I10 Essential (primary) hypertension; J44.9 Chronic obstructive pulmonary disease, unspecified; F41.9 Anxiety disorder, unspecified; M19.90 Unspecified osteoarthritis, unspecified site; R91.8 Other nonspecific abnormal finding of lung field; Z51.81 Encounter for therapeutic drug level monitoring; Z86.16 Personal history of COVID-19; Z87.01 Personal history of pneumonia (recurrent); Z87.891 Personal history of nicotine dependence
CPT/HCPCS: 32408; 36415; 71045; 85025; 85610; 94640; 94760; 96374; 96375; 99152; G0378; G0379; J2250; J3010; J3490; A4615

== ENCOUNTER → 2021-10-02 | Outpatient (CLI) | payer MEDICARE ==
[2021-09-30 08:32] VITALS: BP 122/75
[~2021-10-02] MED LIST changes: +CHOL10004 PO; +MULT-245 PO
--- NOTE | 2021-10-02 13:38 | RAD ---
Exam description: NM PET/CT SKULL BASE TO MID THIGH Date of service: 10/02/2021 11:49 AM Clinical history: 71 years-old Female with Reason: / Spl. Instructions: / History: . Comparison: CT chest from 09/14/2021 Technique: The patient has a measured blood glucose level of 137 mg/dL at the time of radiopharmacuet ical injection. The patient was injected with 12.8 mCi of 18F-FDg intravenously and remained in a doris et dimly lit room for approximately 60 minutes for the uptake phase of the examination. The patient w as then placed in the PET/CT scanner and images were obtained from the top of the skull through the u pper thighs. CT images were used primarily for attenuation correction and localization. The attenuate d corrected and non corrected PET, CT, and fused PET/CT images were reviewed at the [facility] workstation. Findings: HEAD/NECK: Normal symmetric physiologic activity is identified within the extraocular muscles and bra in. No abnormal radiotracer activity is identified within the head and neck. No abnormally enlarged l ymph nodes are evident. CHEST: Postbiopsy changes of FDG avid 3.8 cm mass in the anterior medial left upper lobe, SUV max of 12.4. There is persistent small left anterior pneumothorax. FDG avid enlarged left hilar lymph node m easuring 1.5 cm with SUV max of 8.4. Enlarged left periaortic/aortopulmonary window lymph node measur ing 1.7 cm in maximal diameter with a SUV max of 12.7. Conglomerate of enlarged FDG avid right lower paratracheal lymph nodes with SUV max of 6.9. Enlarged FDG avid left lower paratracheal lymph node wi th SUV max of 6.9. The heart is not enlarged. Small amount of subcutaneous emphysema in the left uppe r anterior and lateral chest. ABDOMEN/PELVIS: There is normal metabolic activity within the liver, spleen, kidneys, collecting syst em, and bowel. No abnormal lymphadenopathy or hypermetabolic activity is identified. Adrenal glands a re unremarkable. Colonic wall thickening with extensive predominantly sigmoid diverticulosis without diverticulitis. SKELETAL STRUCTURES: There is a 3.7 cm lytic lesion with cortical disruption in the left anterior cornel ac bone with SUV max of 23.2 consistent with bony metastasis. No evidence of soft tissue involvement. Nonspecific tiny focus of hypermetabolic activity at the second anterior costochondral junction with SUV max of 4.4. There is no definite lytic or sclerotic abnormality on the noncontrast CT images. Th is may be related to recent biopsy. There is normal physiologic activity within the osseous structure s, bone marrow, and skeletal muscle. There is uptake within the right upper extremity correlating to a vessel seen on the noncontrast images. Arthritic FDG uptake in bilateral shoulders. Impression: 1. FDG avid 3.8 cm mass with postbiopsy changes in the anterior left upper lobe favoring pulmonary ne oplasm, correlation with pending pathology results. Similar appearance of known small left anterior/a pical pneumothorax. Findings were discussed with Dr. Mabry. 2. Large FDG avid mediastinal and hilar adenopathy highly suspicious for amada metastasis. 3. Large lytic FDG avid bone metastasis within the left anterior iliac bone with cortical disruption. No evidence of soft tissue involvement. 4. Non-FDG avid colonic wall thickening likely from recurrent bouts of diverticulitis within the sigm oid colon with extensive diverticulosis. Correlation with colonoscopy to exclude underlying malignanc y. If clinically indicated. 5. Nonspecific tiny focus of minimal FDG avidity within the second left costochondral junction favori ng postbiopsy changes. Bony metastasis is not entirely excluded. Recommend attention on follow-up. PQRS Compliance Statement: One or more of the following individualized dose reduction techniques were utilized for this examinat ion: 1. Automated exposure control 2. Adjustment of the mA and/or kV according to patient size 3. Use of iterative reconstruction technique Electronically signed by: Abiel Pang DO (10/02/2021 1:36 PM) [id number]
== END ==
LOC: PETSC 10:15
PROVIDERS: ATTEND Internal Medicine Pulmonary Disease
DX: C79.51 Secondary malignant neoplasm of bone (principal); C34.92 Malignant neoplasm of unspecified part of left bronchus or lung; K57.30 Diverticulosis of large intestine without perforation or abscess without bleeding; R59.0 Localized enlarged lymph nodes; M19.012 Primary osteoarthritis, left shoulder; M19.011 Primary osteoarthritis, right shoulder
CPT/HCPCS: 78815; A9552

== ENCOUNTER → 2021-10-12 | Outpatient (CLI) | payer MEDICARE ==
[2021-09-30 08:32] VITALS: BP 122/75
--- NOTE | 2021-10-12 17:01 | RAD ---
XR CHEST 2V INDICATION: PNEUMOTHORAX. PTX. COMPARISON STUDY: PET/CT 10/02/2021. FINDINGS: Lungs: Normal lung volume. Stable left perihilar mass, better evaluated on prior PET/CT. The tracheob ronchial tree and hilar structures are normal. Pleura: Left apical pneumothorax has resolved. Heart and Mediastinum: The cardiomediastinal silhouette is normal. The great vessels of the thorax ar e normal. IMPRESSION: 1. Resolved left apical pneumothorax. 2. Stable left perihilar mass. Electronically signed by: Tito Eckert MD (10/12/2021 4:59 PM) [id number]
== END ==
LOC: RAD 12:48
PROVIDERS: ATTEND Internal Medicine Critical Care Medicine
DX: R91.8 Other nonspecific abnormal finding of lung field (principal); J93.9 Pneumothorax, unspecified
CPT/HCPCS: 71046